=== PATIENT | female | born 1995 | race Hispanic/Latino ===

== ENCOUNTER 2017-09-21 15:13 | Inpatient (IN) | payer MEDICAID ==
[2017-09-21 17:20] LABS: Hematocrit 34.4 % (30.3-42.9); Hemoglobin 11.6 gm/dl (10.1-14.3); Mean Corpuscular HGB Conc 34 % (30-34); Mean Corpuscular Hemoglobin 29 pg (28-32); Mean Corpuscular Volume 87 fl (79-97); Platelet Count 222 K/mm3 (140-440); Red Blood Count 3.97 M/mm3 (3.65-5.03); Red Cell Distribution Width 14.6 % (13.2-15.2); White Blood Count 12.8 K/mm3 (4.5-11.0)
[2017-09-21] MEDS ORDERED: STADOL IV PRN (17:43)
[2017-09-21] MEDS ORDERED: XYLOCAINE 2% INFILTRATI ONE (17:43)
[2017-09-21] MEDS ORDERED: BRETHINE SUB-Q PRN (17:43)
[2017-09-21] MEDS ORDERED: MINERAL OIL PO PRN (17:43)
[2017-09-21] MEDS ORDERED: ePHEDrine SULFATE IV PRN (17:43)
[2017-09-21] MEDS ORDERED: BRETHINE IVP PRN (17:43)
[2017-09-21] MEDS ORDERED: SUBLIMAZE IV PRN (17:43)
[2017-09-21] MEDS ORDERED: NARCAN 0.4 MG/1 ML IV PRN (17:43)
[2017-09-21] MEDS ORDERED: ZOFRAN IV PRN (17:43)
[2017-09-21] MEDS ORDERED: PITOCin/NS 30 UNIT/500ML 30 UNITS/500 ML BAG IV SCH ×2 (18:00)
[2017-09-21] MEDS ORDERED: PITOCin/NS 20 UNIT/1000ML DRIP 20 UNITS/1,000 ML BAG IV SCH (18:00)
--- NOTE | 2017-09-21 18:01 | History and Physical Report ---
History of Present Illness Date of examination: 09/21/17 Date of admission: 09/21/17 15:13 Chief complaint: Induction of labor History of present illness: Pt is a 22yo WF EDC 10/01/17; EGA 38 4/7 weeks presents for induction of labor per [facility] due to IUGR (10%), Oligohydramnios (ALE 4.7) and multiple abnormalities ( VSD, Dilated bowel, Pericardial effusion and enlarged heart) and BPP 6/10. She was a late transfer from [facility] and saw [facility] today. records are available and GBS is Positive. Past History Past Medical History: no pertinent history Past Surgical History: no surgical history Social history: no significant social history, single - Obstetrical History Expected Date of Delivery: 10/01/17 Actual Gestation: 38 Week(s) 4 Day(s) : 2 Medications and Allergies Allergies Allergy/AdvReac Type Severity Reaction Status Date / Time No Known Allergies Allergy Unverified 09/21/17 16:56 Home Medications Medication Instructions Recorded Confirmed Last Taken Type Pnv No.95/Ferrous Fum/Folic AC 1 tab PO DAILY 09/21/17 09/21/17 09/20/17 10:00 History [ Vitamins Tablet] Active Meds: Active Medications Butorphanol Tartrate (Stadol) 2 mg IV Q2H PRN PRN Reason: Pain , Severe (7-10) Dinoprostone (Cervidil) 10 mg VG ONCE ONE Stop: 09/21/17 18:31 Ephedrine Sulfate (Ephedrine Sulfate) 10 mg IV Q2M PRN PRN Reason: Hypotension Fentanyl (Sublimaze) 100 mcg IV Q2H PRN PRN Reason: Labor Pain Ampicillin Sodium (Polycillin/Ns 1 Gm/50 Ml) 1 gm in 50 mls @ 100 mls/hr IV Q4HR ELISA PRN Reason: Protocol Lactated Ringer's (Lactated Ringers) 1,000 mls @ 125 mls/hr IV DIRECT ELISA Oxytocin/Sodium Chloride (Pitocin/Ns 20 Unit/1000ml Drip) 20 units in 1,000 mls @ 125 mls/hr IV DIRECT ELISA Oxytocin/Sodium Chloride (Pitocin/Ns 30 Unit/500ml) 30 units in 500 mls @ 1 mls /hr IV TITR ELISA; 1 MILLIUNITS/MIN PRN Reason: Protocol Oxytocin/Sodium Chloride (Pitocin/Ns 30 Unit/500ml) 30 units in 500 mls @ 4 mls /hr IV TITR ELISA PRN Reason: Protocol Lidocaine (Xylocaine 2%) 20 ml INFILTRATI ONCE ONE Stop: 09/21/17 17:44 Mineral Oil (Mineral Oil) 30 ml PO QHS PRN PRN Reason: Constipation Naloxone HCl (Narcan 0.4 Mg/1 Ml) 0.1 mg IV Q2MIN PRN PRN Reason: Res Rate </= 8 or 02 SAT < 92% Ondansetron HCl (Zofran) 4 mg IV Q8H PRN PRN Reason: Nausea And Vomiting Terbutaline Sulfate (Brethine) 0.25 mg SUB-Q ONCE PRN PRN Reason: Hyperstimulation/Hypertonicity Terbutaline Sulfate (Brethine) 0.25 mg IVP ONCE PRN PRN Reason: Hyperstimulation/Hypertonicity Review of Systems All systems: negative - Vital Signs Vital signs: Vital Signs Temp Pulse Resp BP Pulse Ox 99.3 F 88 16 91/55 96 09/21/17 16:47 09/21/17 16:47 09/21/17 16:47 09/21/17 16:47 09/21/17 16:47 Temp Pulse Resp BP Pulse Ox 99.3 F 85 16 91/55 93 09/21/17 16:47 09/21/17 17:56 09/21/17 16:47 09/21/17 16:53 09/21/17 17:56 - Physical Exam Breasts: Positive: deferred Cardiovascular: Regular rate Lungs: Positive: Clear to auscultation Abdomen: Positive: normal appearance Genitourinary (Female): Positive: normal external genitalia Vagina: Positive: normal moisture Cervix: Positive: lesion Uterus: Positive: enlarged Anus/Rectum: Positive: rectal mass - Obstetrical FHR: category 1 Uterine Contraction Monitor Mode: External Cervical Dilatation: 1 Cervical Effacement Percentage: 60 station: -2 Uterine Contraction Pattern: Irregular Uterine Tone Measurement Phase: Contraction Uterine Contraction Intensity: Mild Results Result Diagrams: 09/21/17 16:05 Abnormal lab results 09/21/17 Range/Units 16:05 WBC 12.8 H (4.5-11.0) K/mm3 All other labs normal. Ultrasound: report reviewed Assessment and Plan - Patient Problems (1) 38 weeks gestation of Onset Date: 09/21/17 Current Visit: Yes Status: Acute Plan to address problem: A: IUP @ 38 4/7 weeks IUGR (10%) Oligohydramnios BPP /10 Multiple anomalies + GBS P: Will admit to L&D for cervidel/pitocin induction of labor NICU consultation IV Ampicillin (2) Oligohydramnios in arias in third trimester Onset Date: 09/21/17 Current Visit: Yes Status: Acute (3) IUGR, Onset Date: 09/21/17 Current Visit: Yes Status: Acute
[2017-09-21] MEDS ORDERED: POLYCILLIN/NS 2 GM/100 ML 2 GM/100 ML BAG IV ONE (18:12)
[2017-09-21] MEDS ORDERED: CERVIDIL VG ONE (18:30)
[2017-09-21] MEDS: LACTATED RINGERS 1,000 ML IV SCH (18:44)
[2017-09-21] MEDS ORDERED: AMBIEN PO PRN (22:17)
[2017-09-22] MEDS: POLYCILLIN/NS 1 GM/50 ML 1 GM/50 ML BAG IV SCH ×2 (00:57→05:16)
[2017-09-22] MEDS: LACTATED RINGERS 1,000 ML IV SCH ×2 (03:49→12:34)
--- NOTE | 2017-09-22 09:43 | Progress Note ---
Assessment and Plan - Patient Problems (1) 38 weeks gestation of Onset Date: 09/21/17 Current Visit: Yes Status: Acute Plan to address problem: A: IUP @ 38 5/7 weeks IUGR (10%) Oligohydramnios BPP 6/10 Multiple anomalies + GBS P: Will continue with pitocin induction of labor NICU consultation appreciated IV Ampicillin (2) Oligohydramnios in arias in third trimester Onset Date: 09/21/17 Current Visit: Yes Status: Acute (3) IUGR, Onset Date: 09/21/17 Current Visit: Yes Status: Acute Subjective - Subjective Date of service: 09/22/17 Principal diagnosis: IUP @ 38 5/7 weeks; IUGR; Oligo Interval history: Pt is a 22yo WF EDC 10/01/17; EGA 38 5/7 weeks presented for induction of labor per [facility] due to IUGR (10%), Oligohydramnios (ALE 4.7) and multiple abnormalities ( VSD, Dilated bowel, Pericardial effusion and enlarged heart) and BPP 6/10. She is currently off low dose pitocin from last night , and about to eat and shower. Patient reports: movement normal, contractions, no new complaints, no loss of fluid, no vaginal bleeding Objective - Vital Signs Vital Signs: Vital Signs - 12hr 09/21/17 09/21/17 09/21/17 21:47 21:52 21:57 Temperature Pulse Rate 88 93 H 103 H Respiratory Rate Blood Pressure Blood Pressure [Left] O2 Sat by Pulse 97 96 96 Oximetry 09/21/17 09/21/17 09/21/17 22:02 22:07 22:12 Temperature Pulse Rate 98 H 92 H 81 Respiratory Rate Blood Pressure Blood Pressure [Left] O2 Sat by Pulse 96 97 96 Oximetry 09/21/17 09/21/17 09/21/17 22:17 22:22 22:26 Temperature Pulse Rate 96 H 87 94 H Respiratory Rate Blood Pressure Blood Pressure [Left] O2 Sat by Pulse 96 96 97 Oximetry 09/21/17 09/21/17 09/21/17 22:32 22:37 22:42 Temperature Pulse Rate 95 H 99 H 91 H Respiratory Rate Blood Pressure Blood Pressure [Left] O2 Sat by Pulse 97 96 97 Oximetry 09/21/17 09/21/17 09/21/17 22:47 22:52 22:57 Temperature Pulse Rate 93 H 100 H 81 Respiratory Rate Blood Pressure 102/59 Blood Pressure [Left] O2 Sat by Pulse 96 96 97 Oximetry 09/21/17 09/21/17 09/21/17 23:02 23:07 23:12 Temperature Pulse Rate 69 76 79 Respiratory Rate Blood Pressure Blood Pressure [Left] O2 Sat by Pulse 97 98 97 Oximetry 09/21/17 09/21/17 09/21/17 23:17 23:22 23:27 Temperature Pulse Rate 74 87 94 H Respiratory Rate Blood Pressure Blood Pressure [Left] O2 Sat by Pulse 97 97 97 Oximetry 09/21/17 09/21/17 09/21/17 23:31 23:37 23:42 Temperature Pulse Rate 65 86 83 Respiratory Rate Blood Pressure Blood Pressure [Left] O2 Sat by Pulse 97 96 97 Oximetry 09/21/17 09/21/17 09/21/17 23:47 23:52 23:57 Temperature Pulse Rate 72 71 75 Respiratory Rate Blood Pressure 98/58 Blood Pressure [Left] O2 Sat by Pulse 95 96 97 Oximetry 09/22/17 09/22/17 09/22/17 00:02 00:07 00:11 Temperature Pulse Rate 74 77 63 Respiratory Rate Blood Pressure Blood Pressure [Left] O2 Sat by Pulse 95 95 95 Oximetry 09/22/17 09/22/17 09/22/17 00:16 00:21 00:27 Temperature Pulse Rate 65 73 70 Respiratory Rate Blood Pressure Blood Pressure [Left] O2 Sat by Pulse 96 95 95 Oximetry 09/22/17 09/22/17 09/22/17 00:31 00:36 00:42 Temperature Pulse Rate 94 H 79 69 Respiratory Rate Blood Pressure Blood Pressure [Left] O2 Sat by Pulse 96 95 96 Oximetry 09/22/17 09/22/17 09/22/17 00:47 00:51 00:57 Temperature Pulse Rate 63 69 101 H Respiratory Rate Blood Pressure 100/63 Blood Pressure [Left] O2 Sat by Pulse 96 96 96 Oximetry 09/22/17 09/22/17 09/22/17 00:59 01:03 01:08 Temperature Pulse Rate 101 H 81 102 H Respiratory 13 Rate Blood Pressure Blood Pressure 100/63 [Left] O2 Sat by Pulse 96 96 95 Oximetry 09/22/17 09/22/17 09/22/17 01:13 01:18 01:23 Temperature Pulse Rate 84 105 H 78 Respiratory Rate Blood Pressure Blood Pressure [Left] O2 Sat by Pulse 96 95 95 Oximetry 09/22/17 09/22/17 09/22/17 01:28 01:33 01:38 Temperature Pulse Rate 62 61 75 Respiratory Rate Blood Pressure Blood Pressure [Left] O2 Sat by Pulse 96 95 95 Oximetry 09/22/17 09/22/17 09/22/17 01:43 01:48 01:53 Temperature Pulse Rate 59 L 59 L 66 Respiratory Rate Blood Pressure Blood Pressure [Left] O2 Sat by Pulse 95 95 96 Oximetry 09/22/17 09/22/17 09/22/17 01:58 02:03 02:08 Temperature Pulse Rate 64 61 58 L Respiratory Rate Blood Pressure 92/51 Blood Pressure [Left] O2 Sat by Pulse 94 94 95 Oximetry 09/22/17 09/22/17 09/22/17 02:12 02:18 02:23 Temperature Pulse Rate 61 65 77 Respiratory Rate Blood Pressure Blood Pressure [Left] O2 Sat by Pulse 95 95 95 Oximetry 09/22/17 09/22/17 09/22/17 02:28 02:33 02:38 Temperature Pulse Rate 59 L 65 78 Respiratory Rate Blood Pressure Blood Pressure [Left] O2 Sat by Pulse 95 95 95 Oximetry 09/22/17 09/22/17 09/22/17 02:43 02:48 02:53 Temperature Pulse Rate 61 57 L 60 Respiratory Rate Blood Pressure Blood Pressure [Left] O2 Sat by Pulse 94 95 96 Oximetry 09/22/17 09/22/17 09/22/17 02:58 03:03 03:08 Temperature Pulse Rate 100 H 86 63 Respiratory Rate Blood Pressure 99/65 Blood Pressure [Left] O2 Sat by Pulse 95 94 95 Oximetry 09/22/17 09/22/17 09/22/17 03:13 03:18 03:23 Temperature Pulse Rate 62 57 L 60 Respiratory Rate Blood Pressure Blood Pressure [Left] O2 Sat by Pulse 95 95 95 Oximetry 09/22/17 09/22/17 09/22/17 03:28 03:33 03:38 Temperature Pulse Rate 58 L 58 L 70 Respiratory Rate Blood Pressure Blood Pressure [Left] O2 Sat by Pulse 95 95 95 Oximetry 09/22/17 09/22/17 09/22/17 03:43 03:48 03:55 Temperature Pulse Rate 66 76 77 Respiratory Rate Blood Pressure Blood Pressure [Left] O2 Sat by Pulse 94 95 95 Oximetry 09/22/17 09/22/17 09/22/17 03:57 04:00 04:05 Temperature Pulse Rate 72 89 84 Respiratory Rate Blood Pressure 95/53 Blood Pressure [Left] O2 Sat by Pulse 96 96 Oximetry 09/22/17 09/22/17 09/22/17 04:10 04:15 04:20 Temperature Pulse Rate 70 79 61 Respiratory Rate Blood Pressure Blood Pressure [Left] O2 Sat by Pulse 96 96 97 Oximetry 09/22/17 09/22/17 09/22/17 04:25 04:30 04:35 Temperature Pulse Rate 61 68 59 L Respiratory Rate Blood Pressure Blood Pressure [Left] O2 Sat by Pulse 96 96 97 Oximetry 09/22/17 09/22/17 09/22/17 04:40 04:45 04:50 Temperature Pulse Rate 62 61 61 Respiratory Rate Blood Pressure Blood Pressure [Left] O2 Sat by Pulse 95 96 96 Oximetry 09/22/17 09/22/17 09/22/17 04:55 04:57 05:00 Temperature Pulse Rate 63 70 62 Respiratory Rate Blood Pressure 89/55 Blood Pressure [Left] O2 Sat by Pulse 96 95 Oximetry 09/22/17 09/22/17 09/22/17 05:05 05:10 05:15 Temperature Pulse Rate 59 L 56 L 60 Respiratory Rate Blood Pressure Blood Pressure [Left] O2 Sat by Pulse 95 95 95 Oximetry 09/22/17 09/22/17 09/22/17 05:20 05:25 05:30 Temperature Pulse Rate 66 55 L 56 L Respiratory Rate Blood Pressure Blood Pressure [Left] O2 Sat by Pulse 95 96 97 Oximetry 09/22/17 09/22/17 09/22/17 05:35 05:40 05:45 Temperature Pulse Rate 56 L 52 L 64 Respiratory Rate Blood Pressure Blood Pressure [Left] O2 Sat by Pulse 96 96 96 Oximetry 09/22/17 09/22/17 09/22/17 05:50 05:55 05:57 Temperature Pulse Rate 58 L 69 57 L Respiratory Rate Blood Pressure 89/56 Blood Pressure [Left] O2 Sat by Pulse 96 96 Oximetry 09/22/17 09/22/17 09/22/17 06:00 06:05 06:10 Temperature Pulse Rate 59 L 70 66 Respiratory Rate Blood Pressure Blood Pressure [Left] O2 Sat by Pulse 96 97 97 Oximetry 09/22/17 09/22/17 09/22/17 06:15 06:20 06:24 Temperature Pulse Rate 87 65 84 Respiratory Rate Blood Pressure Blood Pressure [Left] O2 Sat by Pulse 96 95 98 Oximetry 09/22/17 09/22/17 09/22/17 06:30 06:34 06:40 Temperature Pulse Rate 92 H 62 60 Respiratory Rate Blood Pressure Blood Pressure [Left] O2 Sat by Pulse 96 96 96 Oximetry 09/22/17 09/22/17 09/22/17 06:45 06:50 06:55 Temperature Pulse Rate 62 64 67 Respiratory Rate Blood Pressure Blood Pressure [Left] O2 Sat by Pulse 96 96 97 Oximetry 09/22/17 09/22/17 09/22/17 06:57 06:59 07:05 Temperature Pulse Rate 92 H 62 59 L Respiratory Rate Blood Pressure 99/61 Blood Pressure [Left] O2 Sat by Pulse 96 96 Oximetry 09/22/17 09/22/17 09/22/17 07:10 07:15 07:19 Temperature Pulse Rate 60 59 L 65 Respiratory Rate Blood Pressure Blood Pressure [Left] O2 Sat by Pulse 96 95 96 Oximetry 09/22/17 09/22/17 09/22/17 07:24 07:30 07:35 Temperature Pulse Rate 60 76 71 Respiratory Rate Blood Pressure Blood Pressure [Left] O2 Sat by Pulse 97 97 96 Oximetry 09/22/17 09/22/17 09/22/17 07:40 07:43 07:45 Temperature 97.2 F L Pulse Rate 64 82 63 Respiratory 18 Rate Blood Pressure Blood Pressure 99/61 [Left] O2 Sat by Pulse 96 97 96 Oximetry 09/22/17 09/22/17 09/22/17 07:50 07:54 07:58 Temperature Pulse Rate 76 79 78 Respiratory Rate Blood Pressure 111/70 Blood Pressure [Left] O2 Sat by Pulse 97 97 Oximetry 09/22/17 09/22/17 09/22/17 08:00 08:04 08:10 Temperature Pulse Rate 76 77 75 Respiratory Rate Blood Pressure Blood Pressure [Left] O2 Sat by Pulse 97 97 96 Oximetry 09/22/17 09/22/17 09/22/17 08:15 08:20 08:28 Temperature Pulse Rate 70 85 89 Respiratory Rate Blood Pressure Blood Pressure [Left] O2 Sat by Pulse 97 96 92 Oximetry 09/22/17 09/22/17 09/22/17 08:30 08:32 08:38 Temperature Pulse Rate 88 95 H Respiratory Rate Blood Pressure Blood Pressure [Left] O2 Sat by Pulse 87 95 96 Oximetry 09/22/17 09/22/17 08:43 08:48 Temperature Pulse Rate 99 H 113 H Respiratory Rate Blood Pressure Blood Pressure [Left] O2 Sat by Pulse 96 95 Oximetry - Exam Abdomen: Present: normal appearance Uterus: Present: normal FHR: category 1 Uterine Contraction Monitor Mode: External Cervical Dilatation: 1 (per nurse) Cervical Effacement Percentage: 50 (per nurse) station: -3 Uterine Contraction Pattern: Irregular Uterine Tone Measurement Phase: Contraction Uterine Contraction Intensity: Mild - Labs Labs: Abnormal Labs 09/21/17 16:05 WBC 12.8 H Laboratory Results - last 24 hr 09/21/17 09/21/17 16:05 16:05 WBC 12.8 H RBC 3.97 Hgb 11.6 Hct 34.4 MCV 87 MCH 29 MCHC 34 RDW 14.6 Plt Count 222 Blood Type O POSITIVE Antibody Screen Negative
--- NOTE | 2017-09-22 17:29 | Progress Note ---
Assessment and Plan - Patient Problems (1) 38 weeks gestation of Onset Date: 09/21/17 Current Visit: Yes Status: Acute Plan to address problem: A: IUP @ 38 5/7 weeks IUGR (10%) Oligohydramnios BPP 6/10 Multiple anomalies + GBS P: Discussed options with pt and her family members re: continued induction Vs elective C Section. NICU consultation appreciated IV Ampicillin (2) Oligohydramnios in arias in third trimester Onset Date: 09/21/17 Current Visit: Yes Status: Acute (3) IUGR, Onset Date: 09/21/17 Current Visit: Yes Status: Acute Subjective - Subjective Date of service: 09/22/17 Principal diagnosis: IUP @ 38 5/7 weeks; IUGR; Oligo Interval history: Pt is a 22yo WF EDC 10/01/17; EGA 38 4/7 weeks presents for induction of labor per [facility] due to IUGR (10%), Oligohydramnios (ALE 4.7) and multiple abnormalities ( VSD, Dilated bowel, Pericardial effusion and enlarged heart) and BPP 6/10. She is currently on pitocin 20mu/min and kane q 3-4 mins without cervical change. Patient reports: movement normal, contractions, no new complaints, no loss of fluid, no vaginal bleeding Objective - Vital Signs Vital Signs: Vital Signs - 12hr 09/22/17 09/22/17 09/22/17 05:30 05:35 05:40 Temperature Pulse Rate 56 L 56 L 52 L Respiratory Rate Blood Pressure Blood Pressure [Left] O2 Sat by Pulse 97 96 96 Oximetry 09/22/17 09/22/17 09/22/17 05:45 05:50 05:55 Temperature Pulse Rate 64 58 L 69 Respiratory Rate Blood Pressure Blood Pressure [Left] O2 Sat by Pulse 96 96 96 Oximetry 09/22/17 09/22/17 09/22/17 05:57 06:00 06:05 Temperature Pulse Rate 57 L 59 L 70 Respiratory Rate Blood Pressure 89/56 Blood Pressure [Left] O2 Sat by Pulse 96 97 Oximetry 09/22/17 09/22/17 09/22/17 06:10 06:15 06:20 Temperature Pulse Rate 66 87 65 Respiratory Rate Blood Pressure Blood Pressure [Left] O2 Sat by Pulse 97 96 95 Oximetry 09/22/17 09/22/17 09/22/17 06:24 06:30 06:34 Temperature Pulse Rate 84 92 H 62 Respiratory Rate Blood Pressure Blood Pressure [Left] O2 Sat by Pulse 98 96 96 Oximetry 09/22/17 09/22/17 09/22/17 06:40 06:45 06:50 Temperature Pulse Rate 60 62 64 Respiratory Rate Blood Pressure Blood Pressure [Left] O2 Sat by Pulse 96 96 96 Oximetry 09/22/17 09/22/17 09/22/17 06:55 06:57 06:59 Temperature Pulse Rate 67 92 H 62 Respiratory Rate Blood Pressure 99/61 Blood Pressure [Left] O2 Sat by Pulse 97 96 Oximetry 09/22/17 09/22/17 09/22/17 07:05 07:10 07:15 Temperature Pulse Rate 59 L 60 59 L Respiratory Rate Blood Pressure Blood Pressure [Left] O2 Sat by Pulse 96 96 95 Oximetry 09/22/17 09/22/17 09/22/17 07:19 07:24 07:30 Temperature Pulse Rate 65 60 76 Respiratory Rate Blood Pressure Blood Pressure [Left] O2 Sat by Pulse 96 97 97 Oximetry 09/22/17 09/22/17 09/22/17 07:35 07:40 07:43 Temperature 97.2 F L Pulse Rate 71 64 82 Respiratory 18 Rate Blood Pressure Blood Pressure 99/61 [Left] O2 Sat by Pulse 96 96 97 Oximetry 09/22/17 09/22/17 09/22/17 07:45 07:50 07:54 Temperature Pulse Rate 63 76 79 Respiratory Rate Blood Pressure Blood Pressure [Left] O2 Sat by Pulse 96 97 97 Oximetry 09/22/17 09/22/17 09/22/17 07:58 08:00 08:04 Temperature Pulse Rate 78 76 77 Respiratory Rate Blood Pressure 111/70 Blood Pressure [Left] O2 Sat by Pulse 97 97 Oximetry 09/22/17 09/22/17 09/22/17 08:10 08:15 08:20 Temperature Pulse Rate 75 70 85 Respiratory Rate Blood Pressure Blood Pressure [Left] O2 Sat by Pulse 96 97 96 Oximetry 09/22/17 09/22/17 09/22/17 08:28 08:30 08:32 Temperature Pulse Rate 89 88 Respiratory Rate Blood Pressure Blood Pressure [Left] O2 Sat by Pulse 92 87 95 Oximetry 09/22/17 09/22/17 09/22/17 08:38 08:43 08:48 Temperature Pulse Rate 95 H 99 H 113 H Respiratory Rate Blood Pressure Blood Pressure [Left] O2 Sat by Pulse 96 96 95 Oximetry 09/22/17 09/22/17 09/22/17 10:57 12:05 12:39 Temperature 97.9 F Pulse Rate 92 H 72 Respiratory 18 Rate Blood Pressure 132/58 112/61 Blood Pressure [Left] O2 Sat by Pulse Oximetry 09/22/17 09/22/17 09/22/17 12:58 13:57 14:29 Temperature Pulse Rate 86 66 Respiratory 18 Rate Blood Pressure 99/55 97/56 Blood Pressure [Left] O2 Sat by Pulse Oximetry 09/22/17 09/22/17 09/22/17 14:58 15:57 16:57 Temperature Pulse Rate 108 H 75 67 Respiratory Rate Blood Pressure 120/83 104/58 116/66 Blood Pressure [Left] O2 Sat by Pulse Oximetry - Exam Abdomen: Present: normal appearance, soft Uterus: Present: normal FHR: category 1 Uterine Contraction Monitor Mode: External Cervical Dilatation: 1 (per nurse) Cervical Effacement Percentage: 50 (per nurse) station: -3 Uterine Contraction Pattern: Regular Uterine Tone Measurement Phase: Contraction Uterine Contraction Intensity: Mild - Labs Labs: Abnormal Labs 09/21/17 16:05 WBC 12.8 H Laboratory Results - last 24 hr 09/21/17 09/21/17 16:05 16:05 RPR Nonreactive Antibody Screen Negative
[2017-09-22] MEDS ORDERED: BICITRA PO ONE (18:52)
[2017-09-22] MEDS ORDERED: REGLAN IV ONE (18:52)
[2017-09-22] MEDS ORDERED: PEPCID IV ONE (18:52)
[2017-09-22] MEDS ORDERED: ANCEF/STERILE WATER 2 GM/20 ML 2 GM/20 ML SYRINGE IV NR (19:00)
[2017-09-22] MEDS ORDERED: LACTATED RINGERS 1,000 ML IV SCH (19:00)
--- NOTE | 2017-09-22 19:26 | Anesthesia Consultation ---
Anesthesia Consult and Med Hx Date of service: 09/22/17 - Airway Anesthetic Teeth Evaluation: Good ROM Head & Neck: Adequate Mental/Hyoid Distance: Adequate Mallampati Class: Class I Intubation Access Assessment: Good - Pulmonary Exam CTA: Yes - Cardiac Exam Cardiac Exam: RRR - Pre-Operative Health Status ASA Pre-Surgery Classification: ASA3, Emergency Proposed Anesthetic Plan: Spinal - Pulmonary Hx Asthma: Yes (no treatment in 6 years) COPD: No Hx Pneumonia: No - Cardiovascular System Hx Hypertension: No - Central Nervous System Hx Seizures: No Hx Psychiatric Problems: No - Endocrine Hx Renal Disease: No Hx End Stage Renal Disease: No Hx Hypothyroidism: No Hx Hyperthyroidism: No - Hematic Hx Anemia: No Hx Sickle Cell Disease: No - Other Systems Hx Alcohol Use: No
--- NOTE | 2017-09-22 19:26 | Anesthesia Day of Surgery ---
Anesthesia Day of Surgery - Day of Surgery Patient Examined: Yes Patient H&P Reviewed: Yes Patient is NPO: Yes (FSP)
[2017-09-22] MEDS ORDERED: MORPHINE ONE (19:39)
[2017-09-22] MEDS ORDERED: NACL 0.9% IR ONE (19:55)
[2017-09-22] MEDS ORDERED: WATER FOR IRRIG STERILE IR ONE (19:55)
[2017-09-22] MEDS ORDERED: ePHEDrine SULFATE ONE (20:05)
[2017-09-22] MEDS ORDERED: ZOFRAN ONE (20:08)
--- NOTE | 2017-09-22 20:41 | Operative Report ---
Operative Report Operative Report: Date of procedure: 09/22/2017 Pre-operative diagnosis: 1. Intrauterine at 38-5/7 weeks 2. Intrauterine growth restriction 3. Oligohydramnios 4. ventriculoseptal defect 5. Failed induction of labor Post-operative diagnosis: Same Procedure name(s): Primary low transverse section Surgeon: Dylon Mccabe MD Bulk Mail Technician: None Anesthesia: Spinal anesthesia by Dr. Tovar EBL: 600 mils Findings: A 3106 g female Apgars 8 at 1 minute 9 at 5 minutes. Clear amniotic fluid. Nuchal cord 1. Normal uterus. Normal tubes and ovaries bilaterally. Procedure: After the patient was prepped and draped in usual sterile fashion, and after satisfactory level of epidural anesthesia was obtained, the skin knife was used to make a transverse skin incision. The incision was excised down to layer of the fascia, which was nicked in the midline and extended laterally using the Bovie cautery. The rectus muscles were dissected off the rectus fascia both superiorly and inferiorly. The rectus bellies in the midline, and the peritoneum was entered under direct visualization. The peritoneal incision was extended superiorly and inferiorly. A bladder flap was created and the bladder blade was then placed. The uterus was scored in a curvilinear linear fashion, entered in the midline revealing clear amniotic fluid. The 's head was delivered onto the surgical field, nuchal cord 1 easily reduced and the oropharynx and nasopharynx were bulb suctioned. The rest of the 's body was delivered, cord was doubly clamped and cut and the was handed to the waiting respiratory team. Cord blood was then obtained. The placenta was manually removed from the uterus, and the uterus removed from its normal anatomical position. After gentle uterine lavage, the incision was inspected and found to be without extensions. It was then closed in 2 layers using 0 Vicryl suture in a running interlocking fashion, the second layer imbricating the first. After good hemostasis was achieved, copious amounts or irrigation was performed, and the gutters were suctioned free of blood and blood clots. Tisseel sealant was sprayed across the uterine incision. The uterus was then returned to its normal anatomical position, and after excellent hemostasis assured, the peritoneum was re-approximated using 3- 0 Vicryl suture in a running interlocking fashion, and then the rectus muscles were re-approximated using 3-0 Vicryl suture in a [id number] configuration. The fascia was then re-approximated using 0 Vicryl suture in running interlocking fashion. The subcutaneous layer was made hemostatic using Bovie cautery, the Tisseel sealant was sprayed across the fascial incision and the skin edges re-approximated using 4-0 Vicryl suture in a sub-cuticular fashion. Patient tolerated the procedure well was transported to recovery in stable condition.
[2017-09-22] MEDS ORDERED: NORCO 5/325 PO PRN (20:42)
[2017-09-22] MEDS ORDERED: NARCAN 0.4 MG/1 ML IV PRN (20:42)
[2017-09-22] MEDS ORDERED: MYLICON PO PRN (20:42)
[2017-09-22] MEDS ORDERED: TUCKS PAD TP PRN (20:42)
[2017-09-22] MEDS ORDERED: SENOKOT PO PRN (20:42)
[2017-09-22] MEDS ORDERED: TYLENOL PO PRN (20:42)
[2017-09-22] MEDS ORDERED: PHENERGAN PR PRN (20:42)
[2017-09-22] MEDS ORDERED: TORADOL IV PRN (20:42)
[2017-09-22] MEDS ORDERED: BENADRYL IV PRN (20:53)
[2017-09-22] MEDS ORDERED: DILAUDID IV PRN (20:53)
--- NOTE | 2017-09-22 20:53 | Post Anesthesia Evaluation ---
- Post Anesthesia Evaluation Patient Participated: Yes Airway Patent: Yes Stable Respiratory Function: Yes Temp > 96.8F: Yes Pain Manageable: Yes Adequeate Hydration: Yes Anesthesia Complications: No
[2017-09-22] MEDS ORDERED: SODIUM CHLORIDE FLUSH SYRINGE 10 ML IV PRN (21:00)
[2017-09-22] MEDS ORDERED: D5LR 1,000 ML IV SCH (21:00)
[2017-09-22] MEDS ORDERED: ANCEF/NS 1 GM/50 ML 1 GM/50 ML BAG IV SCH (21:00)
[2017-09-22] MEDS ORDERED: PITOCin/NS 20 UNIT/1000ML DRIP 20 UNITS/1,000 ML BAG IV SCH (21:00)
[2017-09-22] MEDS: DILAUDID IV PRN ×2 (21:02→21:20)
[2017-09-22] MEDS ORDERED: METHERGINE IM ONE ×2 (21:42)
[2017-09-23] MEDS: ceFAZolin 1 GM in NACL 0.9% 20 ML IV SCH ×2 (04:01→14:18)
--- NOTE | 2017-09-23 07:24 | Progress Note ---
Assessment and Plan POD # 1 s/p Primary LtcS -Doing well P: -Continue routine care -Anticipate discharge in 24-48 hours - Patient Problems (1) S/P primary low transverse Current Visit: Yes Status: Acute Subjective - Subjective Date of service: 09/23/17 Principal diagnosis: POD # 1; IUP @ 38 5/7 weeks; IUGR; [place] Interval history: Patient seen and examined, stable doing well. No issues overnight, no nausea vomiting, no fever or chills no shortness of breath or chest pain. [place] still in place with adequate urine output Patient reports: appetite normal, voiding normally, pain well controlled, no nauseated : doing well Objective - Vital Signs Latest vital signs: Vital Signs Temp Pulse Resp BP BP Pulse Ox 09/23/17 05:00 98.5 F 72 18 91/51 09/23/17 00:40 99.6 F 97 H 20 106/67 09/22/17 22:26 98 F 69 20 123/73 09/22/17 21:55 72 11 L 116/66 97 09/22/17 21:51 123 H 12 109/62 100 09/22/17 21:50 97.9 F 09/22/17 21:45 77 11 L 112/70 98 09/22/17 21:40 80 10 L 108/72 98 09/22/17 21:35 113 H 12 103/62 100 09/22/17 21:30 87 14 108/68 100 09/22/17 21:25 86 8 L 106/51 99 09/22/17 21:20 81 9 L 99/52 99 09/22/17 21:15 92 H 8 L 103/54 100 09/22/17 21:10 69 13 109/62 100 09/22/17 21:06 68 14 100 09/22/17 21:02 12 09/22/17 21:00 66 11 L 100/50 100 09/22/17 20:55 66 10 L 105/49 100 09/22/17 20:52 67 10 L 100 09/22/17 20:51 97.6 F 09/22/17 18:57 87 100/63 09/22/17 18:36 73 102/60 09/22/17 17:57 68 108/69 09/22/17 17:25 97.9 F 16 09/22/17 16:57 67 116/66 09/22/17 15:57 75 104/58 09/22/17 14:58 108 H 120/83 09/22/17 14:29 18 09/22/17 13:57 66 97/56 09/22/17 12:58 86 99/55 09/22/17 12:39 97.9 F 18 09/22/17 12:05 72 112/61 09/22/17 10:57 92 H 132/58 09/22/17 08:48 113 H 95 09/22/17 08:43 99 H 96 09/22/17 08:38 95 H 96 09/22/17 08:32 88 95 09/22/17 08:30 87 09/22/17 08:28 89 92 09/22/17 08:20 85 96 09/22/17 08:15 70 97 09/22/17 08:10 75 96 09/22/17 08:04 77 97 09/22/17 08:00 76 97 09/22/17 07:58 78 111/70 09/22/17 07:54 79 97 09/22/17 07:50 76 97 09/22/17 07:45 63 96 09/22/17 07:43 97.2 F L 82 18 99/61 97 09/22/17 07:40 64 96 09/22/17 07:35 71 96 09/22/17 07:30 76 97 09/22/17 07:24 60 97 Intake and Output 09/22/17 09/22/17 09/23/17 15:59 23:59 07:59 Intake Total 1574.697 5336.333 120 Output Total 350 600 Balance 9728.183 1768.333 -480 Intake: IV 3105.677 0394.333 Lactated Ringers 1,000 ml 1000 @ 125 mls/hr IV DIRECT ELISA Rx#:[id number] PITOCin/NS 30 UNIT/500ML 70.133 97.333 30 units In 500 ml @ 4 mls/hr IV TITR ELISA Rx#: [id number] Intake, Free Water 120 Output: Urine 350 600 Indwelling Catheter 600 Other: Total, Output Amount 600 Estimated Blood Loss 600 - Exam Abdomen: Present: normal appearance, soft. Absent: distention, tenderness, guarding, rigidity Incision: Present: dressed
[2017-09-23] MEDS: PERCOCET 5/325 PO PRN ×3 (09:17→21:37)
[2017-09-23 09:53] LABS: Hematocrit 27.2 % (30.3-42.9)
[2017-09-23] MEDS ORDERED: PRENATAL VITAMIN PO SCH (10:00)
[2017-09-23] MEDS ORDERED: FEOSOL PO SCH (10:00)
--- NOTE | 2017-09-23 10:58 | Progress Note ---
Subjective Date of service: 09/23/17 Principal diagnosis: POD # 1; IUP @ 38 5/7 weeks; IUGR; [place] Interval history: 1st POD after Patient is in the bed, comfortable. Pain is well controlled with pain meds. Ambulated well. No residual neurological deficit. No anesthesia complications Objective - Constitutional Vitals: Vital Signs - 12hr 09/23/17 09/23/17 00:40 05:00 Temperature 99.6 F 98.5 F Pulse Rate 97 H 72 Respiratory 20 18 Rate Blood Pressure 106/67 91/51 [Left] - Labs CBC & Chem 7: 09/23/17 08:46 Labs: Abnormal lab results 09/23/17 Range/Units 08:46 Hgb 9.0 L (10.1-14.3) gm/dl Hct 27.2 L D (30.3-42.9) %
[2017-09-23] MEDS: MOTRIN PO PRN ×2 (15:33→21:36)
[2017-09-23] MEDS ORDERED: M-M-R II VACCINE SUB-Q ONE (20:44)
[2017-09-24] MEDS: PERCOCET 5/325 PO PRN ×3 (03:39→16:52)
[2017-09-24] MEDS: MOTRIN PO PRN ×2 (05:08→13:42)
[2017-09-24] MEDS ORDERED: BOOSTRIX IM ONE (06:00)
--- NOTE | 2017-09-24 08:22 | Progress Note ---
Assessment and Plan POD # 2 s/p Primary LtcS -Doing well P: -Continue routine care -Anticipate discharge in 24-48 hours - Patient Problems (1) S/P primary low transverse Current Visit: Yes Status: Acute Subjective - Subjective Date of service: 09/24/17 Principal diagnosis: POD # 2; IUP @ 38 5/7 weeks; IUGR; [place] Interval history: Patient seen and examined, stable doing well. No issues overnight, no nausea vomiting, no fever or chills no shortness of breath or chest pain. Patient reports: appetite normal, voiding normally, pain well controlled, ambulating normally, no dizzy ambulation, no nauseated [place]: doing well Objective - Vital Signs Latest vital signs: Vital Signs Temp Pulse Resp BP BP Pulse Ox 09/24/17 00:30 98.6 F 69 18 99/71 09/23/17 20:30 98.6 F 77 18 101/69 09/23/17 16:58 98.8 F 72 20 92/51 09/23/17 09:23 98.6 F 73 18 89/54 96 Intake and Output 09/23/17 09/24/17 09/24/17 23:59 07:59 15:59 Intake Total 240 300 Balance 240 300 Intake: Oral 240 300 Other: Total, Intake Amount 240 300 - Exam Abdomen: Present: normal appearance, soft. Absent: distention, tenderness, guarding, rigidity Uterus: Present: firm, fundal height below umbilicus Extremities: Present: normal Incision: Present: dry, intact - Labs Labs: Abnormal lab results 09/23/17 Range/Units 08:46 Hgb 9.0 L (10.1-14.3) gm/dl Hct 27.2 L D (30.3-42.9) %
--- NOTE | 2017-09-24 08:24 | Discharge Summary ---
Providers - Providers Date of Admission: 09/21/17 15:13 Date of discharge: 09/25/17 Attending physician: DIMAS ALLEN 09/21/17 17:49 Consult to Physician [CONS] Routine Consulting Provider: SANDHYA GERBER Reason For Exam: IUGR Place consult to:: NICU Notified:: CHARGE NURSE Phone number called:: [phone] Was contact made?: Yes If yes, spoke with:: Rakel Time called:: 17:50 Comment:: WILL NOTIFY MD Primary care physician: DIMAS ALLEN Hospitalization Reason for admission: induction of labor, IUP at term (IUGR and Oligo) Delivery: Procedure: primary low transverse Incision: dry, intact Other procedures: none complications: none Discharge diagnosis: IUP at term delivered [place] baby: female Hospital course: Uncomplicated course Condition at discharge: Good Disposition: DC-01 TO HOME OR SELFCARE - Discharge Diagnoses (1) S/P primary low transverse Status: Acute Plan - Discharge Medications Prescriptions: Ferrous Sulfate [Feosol 325 MG tab] 325 mg PO BID #60 tablet HYDROcodone/APAP 5-325 [[place] 5/325] 1 each PO Q6HR PRN #30 tablet PRN Reason: Pain Ibuprofen [Motrin] 800 mg PO Q8HR PRN #30 tablet PRN Reason: Moder Pain Unrelieved By [place] Vit Calc,Iron,Folic [ Vitamins] 1 each PO DAILY #30 tablet - Provider Discharge Summary Activity: no sex for 6 weeks, no heavy lifting 4 weeks, no strenuous exercise Diet: routine Additional instructions: [] Smoking cessation referral if applicable(refer to patient education folder for contact #) [] Refer to [facility] Booklet Call your doctor immediately for: * Fever > 100.5 * Heavy vaginal bleeding ( >1 pad per hour) * Severe persistent headache * Shortness of breath * Reddened, hot, painful area to leg or breast * Drainage or odor from incision. * Keep incision clean and dry at all times and follow doctor's instructions regarding bathing/showering - Follow up plan Follow up: DIMAS ALLEN MD [Primary Care Provider] - 7 Days
[2017-09-24 09:30] VITALS: BP 97/56
== END 2017-09-24 18:10 | disposition home or self-care (01) | DRG 765 ==
LOC: LD 15:13 → OB 09-22 22:29
PROVIDERS: ADMIT Obstetrics & Gynecology; ATTEND Obstetrics & Gynecology
PROC: 10D00Z1 Extraction of Products of Conception, Low, Open Approach (ICD-10-PCS; principal; 2017-09-22)
PROC: 3E0234Z Introduction of Serum, Toxoid and Vaccine into Muscle, Percutaneous Approach (ICD-10-PCS; 2017-09-23)
DX: O41.03X0 Oligohydramnios, third trimester, not applicable or unspecified (principal); O36.5930 Maternal care for other known or suspected poor fetal growth, third trimester, not applicable or unspecified; O76 Abnormality in fetal heart rate and rhythm complicating labor and delivery; O99.824 Streptococcus B carrier state complicating childbirth; O99.52 Diseases of the respiratory system complicating childbirth; J45.909 Unspecified asthma, uncomplicated; O61.9 Failed induction of labor, unspecified; Z3A.38 38 weeks gestation of pregnancy; Z37.0 Single live birth; Z23 Encounter for immunization
CPT/HCPCS: 36415; 85014; 85018; 85027; 86592; 86850; 86900; 86901; 88307; 90471; 90715; 99211; C9250; G0463; J0290; J0595; J0690; J1170; J1885; J2210; J2270; J2405; J2590; J2765; J7120; J7121

== ENCOUNTER 2020-02-11 01:28 | Inpatient (IN) | payer OTHER ==
[2020-02-11] MEDS ORDERED: LACTATED RINGERS 1,000 ML IV ONE (02:52)
[2020-02-11] MEDS ORDERED: LACTATED RINGERS 1,000 ML IV SCH (04:00)
[2020-02-11] MEDS ORDERED: ceFAZolin/Water 2 GM/20 ML 2 GM/20 ML SYRINGE IV NR (04:00)
[2020-02-11] MEDS ORDERED: OXYTOCIN 20 UNIT/1000ML DRIP 20 UNITS/1,000 ML BAG IV SCH ×2 (04:00→07:00)
--- NOTE | 2020-02-11 04:01 | History and Physical Report ---
History of Present Illness Date of examination: 02/11/20 Chief complaint: IUP at 38+5/7 weeks previous c/sectionx1 prolonged 10 minute deceleration No pNR available, patient of [place] Past History Past Surgical History: section Family/Genetic History: none Social history: no significant social history - Obstetrical History : 3 Medications and Allergies Allergies Allergy/AdvReac Type Severity Reaction Status Date / Time No Known Allergies Allergy Unverified 09/21/17 16:56 Home Medications Medication Instructions Recorded Confirmed Last Taken Type Pnv No.95/Ferrous Fum/Folic AC 1 tab PO DAILY 09/21/17 09/21/17 09/20/17 10:00 History [ Vitamins Tablet] Ferrous Sulfate [Feosol 325 MG tab] 325 mg PO BID #60 tablet 09/22/17 Unknown Rx HYDROcodone/APAP 5-325 [[place] 1 each PO Q6HR PRN #30 tablet 09/22/17 Unknown Rx 5/325] Ibuprofen [Motrin] 800 mg PO Q8HR PRN #30 tablet 09/22/17 Unknown Rx Vit Calc,Iron,Folic 1 each PO DAILY #30 tablet 09/22/17 Unknown Rx [ Vitamins] Active Meds: Active Medications Oxytocin/Sodium Chloride (Pitocin/Ns 20 Unit/1000ml Drip) 20 units in 1,000 mls @ 0 mls/hr IV TITR ELISA Lactated Ringer's (Lactated Ringers) 1,000 mls @ 2,250 mls/hr IV PREOP ELISA Stop: 02/12/20 04:27 Cefazolin Sodium (Ancef/Sterile Water 2 Gm/20 Ml) 2 gm in 20 mls @ 80 mls/hr IV PREOP NR; Protocol - Vital Signs Vital signs: Vital Signs Temp Pulse Resp BP Pulse Ox 99.3 F 85 16 98/56 98 02/11/20 02:15 02/11/20 02:15 02/11/20 02:15 02/11/20 02:15 02/11/20 02:15 Temp Pulse Resp BP Pulse Ox 99.3 F 103 H 16 98/56 100 02/11/20 02:15 02/11/20 03:55 02/11/20 02:15 02/11/20 02:15 02/11/20 03:55 - Physical Exam Cardiovascular: Regular rate Lungs: Positive: Clear to auscultation Abdomen: Positive: normal appearance, soft, normal bowel sounds Extremities: Positive: normal Deep Tendon Reflex Grade: Normal +2 - Obstetrical FHR: category 2 Cervical Dilatation: 0.5 Cervical Effacement Percentage: 80 station: -1 Uterine Contraction Pattern: Regular Results All other labs normal. Assessment and Plan emergency repeat c/section NPO on shiva lto OR for procedure informed consent obtained Fritz POSADA
[2020-02-11] MEDS ORDERED: METOCLOPRAMIDE 10 MG/2 ML INJ ONE (04:07)
[2020-02-11] MEDS ORDERED: BICITRA ORAL LIQD 30ML ONE (04:07)
[2020-02-11] MEDS ORDERED: FAMOTIDINE 20 MG/2 ML INJ IV ONE (04:08)
--- NOTE | 2020-02-11 04:25 | Anesthesia Day of Surgery ---
Anesthesia Day of Surgery - Day of Surgery Patient Examined: Yes Patient H&P Reviewed: Yes Patient is NPO: Yes
--- NOTE | 2020-02-11 04:25 | Anesthesia Consultation ---
Anesthesia Consult and Med Hx Date of service: 02/11/20 - Airway Anesthetic Teeth Evaluation: Good ROM Head & Neck: Adequate Mental/Hyoid Distance: Adequate Mallampati Class: Class II Intubation Access Assessment: Probably Good - Pulmonary Exam CTA: Yes - Cardiac Exam Cardiac Exam: RRR - Pre-Operative Health Status ASA Pre-Surgery Classification: ASA3, Emergency Proposed Anesthetic Plan: Spinal - Pulmonary Hx Asthma: Yes (LAST ATTACK 2010) COPD: No Hx Pneumonia: No - Cardiovascular System Hx Hypertension: Yes - Central Nervous System Hx Seizures: No Hx Psychiatric Problems: No - Endocrine Hx Renal Disease: No Hx End Stage Renal Disease: No Hx Hypothyroidism: No Hx Hyperthyroidism: No - Hematic Hx Anemia: No Hx Sickle Cell Disease: No - Other Systems Hx Alcohol Use: No
[2020-02-11] MEDS ORDERED: METHYLERGONOVINE MALEATE 0.2 MG/ML VIAL IM ONE (05:19)
[2020-02-11] MEDS ORDERED: KETOROLAC 30 MG/1 ML INJ ONE (05:27)
[2020-02-11] MEDS ORDERED: OXYTOCIN 10 UNIT/1 ML INJ ONE (05:27)
[2020-02-11] MEDS ORDERED: dexAMETHasone 20 MG/5 ML VIAL ONE (05:27)
[2020-02-11] MEDS ORDERED: SODIUM CHLORIDE 0.9% 100 ML ONE (05:27)
[2020-02-11] MEDS ORDERED: BUPIVACAINE/PF (0.5%) 5 MG/1 ML 30 ML VIAL INFILTRATI ONE (05:27)
[2020-02-11] MEDS ORDERED: DEXMEDETOMIDINE 200 MCG/2 ML VIAL IV ONE (05:27)
[2020-02-11] MEDS ORDERED: PHENYLEPHRINE 10 MG/1 ML INJ SDV ONE (05:27)
[2020-02-11] MEDS ORDERED: HETASTARCH 6% 500 ML IV ONE (05:40)
--- NOTE | 2020-02-11 06:08 | Procedure Note ---
OB Delivery Note - Delivery Date of Delivery: 02/11/20 Surgeon: ANYA WEBB Estimated blood loss: 500cc - Section Preop diagnosis: repeat Postop diagnosis: same section procedure: repeat low transverse Disposition: PACU Complications: none Narrative: Preoperative diagnosis: NRFHT Postoperative diagnosis: same Procedure: primary low transverse section via pfannenstiel incision Surgeon : Dr Anya Webb Assist: scrub Anesthesia: spinal Complications: none Drains: romero to gravity EBL 500ml IV fluids: 1000ml Urine output: 30ml Findings:normal uterus, tubes and ovaries bilaterally. Viable female,male 3417gms, 8,9. Procedure: informed consent taken in OB triage with CNM present. All questions and concerns addressed. R/B/C reviewed. She was taken to the OR where excellent spinal anesthesia was given. She was placed in the dorsal supine position with a leftward tilt. She was prepped and draped in a sterile fashion. A time out was verified. An Sunitha clamp was used to assure adequate analgesia. A Pfannenstiel skin incision was made, taken down through the underlying fascia sharply and extended laterally with curved Gonzales scissors. The superior and inferior aspect of the fascial incision was grasped with Tricia clamps and the rectus muscles dissected off sharply. The abdomen was entered sharply in the midline and extended laterally and inferiorly sharply with good visualization of the underlying structures. The vesicouterine peritoneum was grasped with Welsh forceps and incised sharply with Metzenbaum scissors and extended laterally sharply. The uterine incision was made sharply with a scalpel, taken down to the amnion and extended inferiorly and superiorly bluntly. The bladder blade removed. Baby delivered atraumatically in cephalic presentation, no nuchal cord. Spontaneous cry at delivery.The cord was clamped and cut and baby handed to waiting NICU staff. An intact placenta with three vessel cord delivered manually. The uterus cleared of all clots and debris. The uterus was exteriorized and the uterine incision closed with 3 layers of 0-Vicryl. One dose of methergine 0.2mg IM The abdomen was irrigated with warm normal saline and the uterus placed back in the abdomen. A second look at the uterine incision assured excellent hemostasis. The peritoneum closed with 3-0 vicryl. The rectus muscles approximated with 3-0 vicryl with good hemostasis. The fascia closed with 0-Vicryl in the usual fashion, and the underlying structures closed with interrupted suture of O-Vicryl. The skin closed with monocryl and a pressure dressing applied. Mom and baby stable to . Patient hemodynamically stable in PACU. EBL 300ml Fritz POSADA
[2020-02-11] MEDS ORDERED: NALOXONE 0.4 MG/1 ML INJ IV PRN (06:09)
[2020-02-11] MEDS ORDERED: LANOLIN/ZINC/DIMETHICONE (LANSINOH) 7 GM TP PRN ×2 (06:09→08:30)
[2020-02-11] MEDS ORDERED: WITCH HAZEL/ GLYCERIN PAD TP PRN ×2 (06:09→08:30)
[2020-02-11 06:29] LABS: Hematocrit 35.3 % (30.3-42.9); Hemoglobin 11.7 gm/dl (10.1-14.3)
--- NOTE | 2020-02-11 06:41 | Post Anesthesia Evaluation ---
- Post Anesthesia Evaluation Patient Participated: Yes Airway Patent: Yes Stable Respiratory Function: Yes Nausea/Vomiting: No Temp > 96.8F: Yes Pain Manageable: Yes Adequeate Hydration: Yes Anesthesia Complications: No Block Receding Appropriately: Yes
[2020-02-11] MEDS ORDERED: MORPHINE 4 MG/1 ML INJ IV PRN (06:48)
[2020-02-11] MEDS ORDERED: MORPHINE 2 MG/1 ML INJ IV PRN (06:48)
[2020-02-11] MEDS ORDERED: IBUPROFEN 800 MG TAB PO PRN (06:48)
[2020-02-11] MEDS ORDERED: ONDANSETRON 4 MG/2 ML INJ IV PRN (08:30)
[2020-02-11] MEDS ORDERED: KETOROLAC 30 MG/1 ML INJ IV ONE (10:44)
[2020-02-11] MEDS: oxyCODONE /ACETAMINOPHEN 5-325MG TAB PO PRN ×2 (14:41→21:01)
[2020-02-11] MEDS ORDERED: D5W/LACTATED RINGERS 1,000 ML IV SCH (15:00)
[2020-02-11] MEDS: DOCUSATE SODIUM 100 MG CAP PO SCH (21:04)
[2020-02-11 21:14] LABS: Hematocrit 29.5 % (30.3-42.9); Hemoglobin 10.2 gm/dl (10.1-14.3)
[2020-02-11] MEDS ORDERED: MAGNESIUM HYDROXIDE (MOM) ORAL LIQD UDC PO PRN (22:00)
[2020-02-12] MEDS: oxyCODONE /ACETAMINOPHEN 5-325MG TAB PO PRN ×4 (03:00→21:56)
[2020-02-12] MEDS: DOCUSATE SODIUM 100 MG CAP PO SCH ×2 (10:00→21:56)
[2020-02-12] MEDS ORDERED: IBUPROFEN 800 MG TAB ONE (11:13)
--- NOTE | 2020-02-12 12:53 | Progress Note ---
Assessment and Plan A: /postop day 1 S/P repeat LTCS. Anemia. P: Supplement with iron. Encouraged ambulation. Subjective - Subjective Date of service: 02/12/20 Principal diagnosis: /postop day 1 S/P repeat LTCS Interval history: /postop day 1 S/P repeat LTCS. Doing well. Passing gas, voiding without difficulty, ambulating well. Tolerating regular diet. No complaints. Patient reports: appetite normal, voiding normally, pain well controlled, flatus, ambulating normally, no dizzy ambulation, no nauseated [place]: doing well Objective - Vital Signs Latest vital signs: Vital Signs Temp Pulse Resp BP Pulse Ox 02/12/20 07:35 98.7 F 88 18 102/65 97 02/12/20 03:35 98.2 F 20 105/73 02/12/20 00:24 98.2 F 65 20 98/66 100 02/11/20 21:00 98.2 F 77 20 106/69 99 02/11/20 16:53 99.1 F 74 20 91/52 91 Intake and Output 02/11/20 02/12/20 02/12/20 23:59 07:59 15:59 Intake Total 120 120 240 Output Total 1900 600 Balance -1780 -480 240 Intake: Oral 120 120 Intake, Free Water 240 Output: Urine 1900 600 Indwelling Catheter 1900 600 Other: Total, Intake Amount 120 120 Total, Output Amount 400 600 # Voids Indwelling Catheter 2 1 1 - Exam Cardiovascular: Present: Regular rate, Normal S1, Normal S2 Lungs: Present: Clear to auscultation Abdomen: Present: normal appearance, soft, normal bowel sounds. Absent: distention, tenderness, guarding, rigidity Uterus: Present: normal, firm, fundal height below umbilicus. Absent: bogginess, tenderness Extremities: Present: normal. Absent: tenderness, edema Incision: Present: normal, dry, intact, dressed - Labs Labs: Abnormal lab results 02/11/20 Range/Units 20:50 Hct 29.5 L (30.3-42.9) %
[2020-02-12] MEDS: FERROUS SULFATE 325 MG TAB PO SCH (15:46)
[2020-02-13] MEDS: oxyCODONE /ACETAMINOPHEN 5-325MG TAB PO PRN ×3 (04:19→17:20)
[2020-02-13] MEDS: FERROUS SULFATE 325 MG TAB PO SCH (10:08)
[2020-02-13] MEDS: DOCUSATE SODIUM 100 MG CAP PO SCH ×3 (10:10→22:35)
--- NOTE | 2020-02-13 10:10 | Progress Note ---
Assessment and Plan - Patient Problems (1) S/P repeat low transverse Current Visit: Yes Status: Acute Plan to address problem: POD 2 - uncontrolled pain Continue routine postop orders Ambulation encouraged Abdominal binder ordered Anticipate discharge in 24 hours (2) Anemia due to blood loss, acute Current Visit: Yes Status: Acute (3) Uncontrolled pain Current Visit: Yes Status: Acute Plan to address problem: Continue Percocet as ordered Ibuprofen ordered Subjective - Subjective Date of service: 02/13/20 Principal diagnosis: POD #2; s/p Repeat LTCS Interval history: see RN COMPLEX CARE - H&P, OB Delivery Procedure Note and PP/POST OFFICE MARKUP CLERK Progress Note Patient reports: appetite normal, voiding normally, pain poorly controlled, ambulating normally, no dizzy ambulation [place]: doing well, other (breast and bottle feeding) Objective - Vital Signs Latest vital signs: Vital Signs Temp Pulse Resp BP BP Pulse Ox 02/13/20 08:23 98.1 F 18 95/65 02/13/20 01:28 97.6 F 74 16 87/55 87/55 98 02/12/20 16:01 98.0 F 83 18 92/58 97 Intake and Output 02/12/20 02/13/20 02/13/20 23:59 07:59 15:59 Intake Total 720 240 Balance 720 240 Intake: Oral 240 Intake, Free Water 480 240 Other: Total, Intake Amount 240 # Voids Indwelling Catheter 2 Void 1 2 - Exam Cardiovascular: Present: Regular rate Lungs: Present: Clear to auscultation Abdomen: Present: normal appearance, soft Uterus: Present: normal, firm, fundal height below umbilicus Extremities: Present: normal Incision: Present: normal, dry, intact, other (steri strips in place) Comments: scant lochia
[2020-02-13] MEDS: IBUPROFEN 800 MG TAB PO PRN ×2 (13:32→22:35)
[2020-02-14] MEDS: IBUPROFEN 800 MG TAB PO PRN ×2 (05:46→17:13)
[2020-02-14] MEDS: FERROUS SULFATE 325 MG TAB PO SCH (08:28)
[2020-02-14] MEDS: DOCUSATE SODIUM 100 MG CAP PO SCH (08:28)
[2020-02-14] MEDS: oxyCODONE /ACETAMINOPHEN 5-325MG TAB PO PRN ×2 (08:28→15:25)
--- NOTE | 2020-02-14 10:08 | Discharge Summary ---
Providers - Providers Date of Admission: 02/11/20 04:13 Date of discharge: 02/14/20 (1800) Attending physician: ANYA WEBB MD Primary care physician: ANYA WEBB MD Hospitalization Reason for admission: section Delivery: Procedure: primary low transverse Episiotomy: none Laceration: none Incision: dry (steri-strips in place, no bleeding or drainage noted), intact Other procedures: none complications: none Discharge diagnosis: IUP at term delivered [place] baby: male Hospital course: See admission H & P, OB operative note and PP progress notes Condition at discharge: Stable Disposition: DC-01 TO HOME OR SELFCARE - Discharge Diagnoses (1) S/P repeat low transverse Status: Acute (2) Anemia due to blood loss, acute Status: Acute Plan - Discharge Medications Prescriptions: Ferrous Sulfate [Feosol 325 MG tab] 325 mg PO QDAY 30 Days #30 tablet Ibuprofen [Motrin] 600 mg PO Q8H PRN #30 tablet PRN Reason: Pain oxyCODONE /ACETAMINOPHEN [Percocet 5/325] 1 tab PO Q6HR PRN #20 tablet PRN Reason: Pain - Provider Discharge Summary Activity: no sex for 6 weeks, no heavy lifting 4 weeks, no strenuous exercise Diet: other (Iron rich diet) Instructions: routine Additional instructions: [] Smoking cessation referral if applicable(refer to patient education folder for contact #) [] Refer to [facility]'s [facility] Booklet Call your doctor immediately for: * Fever > 100.5 * Heavy vaginal bleeding ( >1 pad per hour) * Severe persistent headache * Shortness of breath * Reddened, hot, painful area to leg or breast * Drainage or odor from incision. * Keep incision clean and dry at all times and follow doctor's instructions regarding bathing/showering - Follow up plan Follow up: ANYA WEBB MD [Primary Care Provider] - 7 Days
[2020-02-14 16:14] VITALS: BP 100/71
== END 2020-02-14 19:10 | disposition home or self-care (01) | DRG 765 ==
LOC: TRG 01:28 → APU 01:34 → TRG 04:10 → APU 04:13 → OB 08:14
PROVIDERS: ADMIT Obstetrics & Gynecology; ATTEND Obstetrics & Gynecology
PROC: 10D00Z1 Extraction of Products of Conception, Low, Open Approach (ICD-10-PCS; principal; 2020-02-11)
PROC: 3E0R3BZ Introduction of Anesthetic Agent into Spinal Canal, Percutaneous Approach (ICD-10-PCS; 2020-02-11)
PROC: 00HU33Z Insertion of Infusion Device into Spinal Canal, Percutaneous Approach (ICD-10-PCS; 2020-02-11)
DX: O34.211 Maternal care for low transverse scar from previous cesarean delivery (principal); D62 Acute posthemorrhagic anemia; O10.92 Unspecified pre-existing hypertension complicating childbirth; O99.52 Diseases of the respiratory system complicating childbirth; O99.02 Anemia complicating childbirth; J45.909 Unspecified asthma, uncomplicated; Z3A.38 38 weeks gestation of pregnancy; Z37.0 Single live birth
CPT/HCPCS: 36415; 85014; 85018; 86592; 86706; 86762; 87806; 88307; G0378; J0690; J1100; J1885; J2210; J2370; J2590; J2765; J3490; J7120; J7121